=== PATIENT | female | born 1945 | race Caucasian/White ===

== ENCOUNTER 2020-10-18 19:36 | Emergency (ER) | payer MEDICARE ==
[2020-10-18 22:19] LABS: HEMOGLOBIN 12.6 gm/dl (12.3-15.3); RED BLOOD COUNT 4.16 M/UL (4.00-5.10); WHITE BLOOD COUNT 7.1 K/UL (4.5-11.0)
[2020-10-19] MEDS ORDERED: FLOVENT 110 MC7.9 GM INH (04:41)
[2020-10-19] MEDS ORDERED: VIBRAMYCIN 100100 MG PO (04:41)
[2020-10-19] MEDS ORDERED: PROAIR DIGIHAL90 MCG INH (04:41)
== END 2020-10-19 05:30 | disposition home or self-care (01) ==
LOC: ER1 19:36
PROVIDERS: Emergency Medicine
DX: U07.1 COVID-19 (principal); J12.82 Pneumonia due to coronavirus disease 2019; I10 Essential (primary) hypertension
CPT/HCPCS: 71045; 80053; 81001; 85025; 96365; 99285; J3480; M0243; Q0244

== ENCOUNTER → 2021-10-09 | Outpatient (CLI) | payer MEDICARE ==
[~2021-10-09] MED LIST: FLOVENT 110 MC7.9 GM INH; PROAIR DIGIHAL90 MCG INH; VIBRAMYCIN 100100 MG PO
== END ==
LOC: KOH-I 13:19
DX: M54.50 Low back pain, unspecified (principal); M25.552 Pain in left hip; M47.816 Spondylosis without myelopathy or radiculopathy, lumbar region
CPT/HCPCS: 72100; 73502

== ENCOUNTER 2021-10-25 08:41 | Emergency (ER) | payer MEDICARE ==
[2021-10-25 10:07] LABS: HEMOGLOBIN 11.7 gm/dl (12.3-15.3); RED BLOOD COUNT 3.97 M/UL (4.00-5.10); WHITE BLOOD COUNT 17.8 K/UL (4.5-11.0)
== END 2021-10-25 14:40 | disposition home or self-care (01) ==
LOC: ER1 08:41
PROVIDERS: Nurse Practitioner
DX: M62.830 Muscle spasm of back (principal); R91.1 Solitary pulmonary nodule; I10 Essential (primary) hypertension; Z88.6 Allergy status to analgesic agent; Z88.2 Allergy status to sulfonamides
CPT/HCPCS: 72131; 72158; 80053; 81001; 85025; 85652; 86140; 87086; 96374; 99284; A9577; J1885